=== PATIENT | female | born 1930 | race Caucasian/White ===

== ENCOUNTER 2018-08-25 10:02 | Inpatient (IN) | payer MEDICARE, OTHER ==
[~2018-08-25] VITALS: Ht 167.6 cm; Wt 54.9 kg
[~2018-08-25 10:02] MED LIST: ALBU2.5V4 NEB; ASPI-983 PO; CALC-308 PO; CHOL5000 PO; HYDR-3816 PO; LACT10SO PO; PANT40TA2 PO; PARO-49 PO; PEDI18TA2 PO; TRAM50TA2 PO
[2018-08-25 13:20] VITALS: BP 110/44
--- NOTE | 2018-08-25 13:43 | Occupational Therapy Eval ---
OT Evaluation-General/PLF Medical Diagnosis Admission Date August 25, 2018 Medical Diagnosis: R TKA Onset Date: Aug 23, 2018 Therapy Diagnosis Therapy Diagnosis: decr self care, decr funct mobility, decr act cleo, weakness Height/Weight Height (Feet): 5 Height (Inches): 7.00 Weight (Pounds): 125 Weight (Ounces): 6.0 Precautions Precautions/Isolations: Fall Prevention, Standard Precautions Weight Bear Status Weight Bearing Restriction: Weight Bearing/Tolerated Location Restriction: R LE Referral Physician: Ricco Referral Reason: Evaluation/Treatment Medical History Pertinent Medical History: Arthritis, GERD Additional Medical History Waldenstrom's lymphoma. Colon resection. Hiatal hernia. L TKA. R hip ORIF in March 2018. Depression. Osteoporosis. Current History Elective R TKA Reviewed History: Yes Social History Home: Single Level Current Living Status: Alone Entry Into Home: Ramp ADL-Prior Level of Function Functional [place] Measure 0=Not Assessed/NA 4=Minimal Assistance 1=Total Assistance 5=Supervision or Setup 2=Maximal Assistance 6=Modified [place] 3=Moderate Assistance 7=Complete [place] ADL PLOF Comments Pt reported that she has been able to manage all of her basic self care needs, care for her home, do laundry, cook, manage her checkbook, take her meds. She also mowed her yard all summer and cares for her dog Toto, several cats and horses. 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 DME/Equipment: Bath Chair, Grab Bars, Shower, Tall Toilet DME/Equipment Comments Has walk-in tub with hand held shower OT Current Status Subjective Pt seen in room, up in recliner, agreeable to OT. Pain reported at 5/10 in knee and had two pain pills before she left. Appearance Alert, cooperative Mental Status/Objective Patient Orientation: Person, Place, Time, Situation Attachments: Saline Lock Current Glasses/Contacts: Yes Hearing Aids: No Dentures/Partials: Yes Hand Dominance: Right Upper Extremity ROM Grossly WFL bilat Upper Extremity Sensation Pt reported occasional numbness in fingers when she works outside Upper Extremity Strength Grossly 4/5 bilat ADL-Treatment ADL-Current Transfer SBA from recliner, FWW. After ADLs, pt walked SBA to gym. Functional [place] Measure 0=Not Assessed/NA 4=Minimal Assistance 1=Total Assistance 5=Supervision or Setup 2=Maximal Assistance 6=Modified [place] 3=Moderate Assistance 7=Complete IndependenceIRFPAI Quality Coding Scale 6 Independent with activity with or without an assistive device 5 Patient requires set up or clean up by helper. Patient completes activity by themselves 4 Supervision or touching assist (CGA). [place] provide cues , steadying assist 3 The helper provides less than half the effort to complete the activity 2 The helper provides more than half the effort to complete the activity 1 Dependent. The helper does all the effort to complete an activity 7 Patient refused to complete or attempt activity 9 The patient did not perform the activity before the current illness or injury 88 Not attempted due to Medical conditions or safety concerns Eating (FIM): 6 (Pt reported no problem with opening packages, cutting food, getting a drink. She has dentures and always wears her teeth to eat) Eating (QC): 6 Grooming (FIM): 5 (washed hands SBA at sink, FWW. Applied makeup, cleaned her dentures, combed hair today) Oral Hygiene (QC): 4 (At sink, SBA, FWW) Bathing (FIM): 5 (Pt reported she took a sponge bath at sink, SBA, FWW. washed and dried all parts.) Shower/Bathe Self (QC): 4 (SBA) Upper Body Dressing (FIM): 5 (Pt reported dressing herself today, setup) Upper Body Dressing (QC): 5 (setup) Lower Body Dressing (FIM): 5 (Pt reported dressing herself today, Able to put on socks and shoes without help. SBA standing, FWW) Lower Body Dressing (QC): 4 (SBA) On/Off Footwear (QC): 5 (setup) Toileting (FIM): 5 (SBA to manage clothingm hygiene. Tall toilet, grab bar, FWW ) Toileting Hygiene (QC): 4 (SBA) Toilet/Commode Transfer (FIM): 5 (SBA getting on and off tall toilet, grab bar , FWW) Toilet Transfer (QC): 4 (SBA) Other Treatments Pt completed 12 minutes bilat UE exercise on arm bike set at 15-20W resistance. Also completed graded clothespins with 1# weight on each arm Exercise to strengthen arms for ADLs and to help increase activity tolerance for self care and home tasks. Care transferred to PT. Education OT Patient Education: Modified ADL techniques, Purpose of tx/functional activities, Rehab process, Transfer techniques Teaching Recipient: Patient Teaching Methods: Discussion Response to Teaching: Verbalize Understanding, Return Demonstration OT Short Term Goals Short Term Goals Time Frame: Sep 01, 2018 Grooming(FIM): 6 Toileting(FIM): 6 Toilet/Commode Transfer(FIM): 6 Additional Short Term Goals: 1-Demonstrate ADL Tasks, 2-Verbalize Understanding , 3-ImproveStrength/Bianka 1=Demonstrate adherence to instructed precautions during ADL tasks. 2=Patient will verbalize/demonstrate understanding of assistive devices/ modifications for ADL. 3=Patient will improve strength/tolerance for activity to enable patient to perform ADL's. OT Fci Goals Apple Peeler Operator Goals Time Frame: Sep 08, 2018 Eating (FIM): 6 Eating (QC): 6 Groomin Oral Hygiene (QC): 6 Bathing(FIM): 6 Shower/Bathe Self (QC): 6 Upper Body Dressing(FIM): 6 Upper Body Dressing (QC): 6 Lower Body Dressing(FIM): 6 Lower Body Dressing (QC): 6 On/Off Footwear (QC): 6 Toileting(FIM): 6 Toileting Hygiene (QC): 6 Toilet/Commode Transfer(FIM): 6 Toilet/Commode Transfer (QC): 6 Shower Transfer(FIM): 6 Additional Goals: 1-Demonstrate ADL Tasks, 2-Verbalize Understanding, 3- ImproveStrength/Bianka 1=Demonstrate adherence to instructed precautions during ADL tasks. 2=Patient will verbalize/demonstrate understanding of assistive devices/ modifications for ADL. 3=Patient will improve strength/tolerance for activity to enable patient to perform ADL's. OT Education/Plan Problem List/Assessment Assessment: Decreased Activ Tolerance, Decreased UE Strength, Dependent Transfers, Impaired I ADL's, Impaired Self-Care Skills Pt would benefit from skilled OT to increase her independence in basic self care to allow her to safely return to her home to live independently with family support Discharge Recommendations Plan/Recommendations: Continue POC Therapy D/C Recommendations: Home w/ Family Support, Occupational Therapy Home Care Treatment Plan/Plan of Care Treatment,Training & Education: Yes Patient would benefit from OT for education, treatment and training to promote independence in ADL's, mobility, safety and/or upper extremity function for ADL' s. Plan of Care: ADL Retraining, Functional Mobility, Group Exercise/Act as Ind ( education, exercise, functional mobility, functional activities, socialization) , UE Funct Exercise/Act, UE Neuromus Re-Ed/Coord, OTHER (energy conservation education and practice) Treatment Duration: Sep 08, 2018 Frequency: At least 5 of 7 days/Wk (IRF) Estimated Hrs Per Day: 1.5 hours per day Agreement: Yes Rehab Potential: Good Time/GCodes Start Time: 14:05 Stop Time: 15:00 Total Time Billed (hr/min): 55 Billed Treatment Time visit, 10 minutes evaluation moderate intensity, 15 minutes ADL, 30 minutes exercise SANDY JAMES OT Aug 25, 2018 13:43
--- NOTE | 2018-08-25 13:58 | Physical Therapy Evaluation ---
PT Evaluation-General Medical Diagnosis Admission Date Aug 25, 2018 at 13:10 Medical Diagnosis: R TKA Onset Date: Aug 23, 2018 Therapy Diagnosis Therapy Diagnosis: impaired mobility, strength, endurance, ROM Height/Weight Height (Feet): 5 Height (Inches): 7.00 Weight (Pounds): 125 Weight (Ounces): 6.0 Precautions Precautions/Isolations: Fall Prevention, Standard Precautions Weight Bear Status Right Lower Extremity: Right Weight Bearing/Tolerated Referral Physician: Ricco Reason for Referral: Evaluation/Treatment Medical History Pertinent Medical History: Arthritis, GERD Additional Medical History Waldenstrom's lymphoma, hyperlipidemia, depression, osteoporosis, surg ( previous ORIF right hip) Reviewed History: Yes Social History Home: Single Level Current Living Status: Alone Entry Into Home: Ramp Patient has a basement. She states she has 3 steps to enter her bedroom. Prior/Core FIM Prior Level of Function Functional [place] Measure 0=Not Assessed/NA 4=Minimal Assistance 1=Total Assistance 5=Supervision or Setup 2=Maximal Assistance 6=Modified [place] 3=Moderate Assistance 7=Complete IndependenceIRFPAI Quality Coding Scale 6 Independent with activity with or without an assistive device 5 Patient requires set up or clean up by helper. Patient completes activity by themselves 4 Supervision or touching assist (CGA). [place] provide cues , steadying assist 3 The helper provides less than half the effort to complete the activity 2 The helper provides more than half the effort to complete the activity 1 Dependent. The helper does all the effort to complete an activity 7 Patient refused to complete or attempt activity 9 The patient did not perform the activity before the current illness or injury 88 Not attempted due to Medical conditions or safety concerns Bed Mobility: 7 Transfers (B,C,W/C) (FIM): 7 Gait: 7 PT Evaluation-Current Subjective Patient in wheelchair pre tx, agrees to PT, has 2-3/10 pain in right knee. Pt/Family Goals to be independent at home. Objective Patient Orientation: Person, Place, Situation ROM/Strength ROM Lower Extremities right knee extension +3 degrees, flexion 94 degrees Strenght Lower Extremities NT Neuromuscular (Tone, Coordination, Reflexes) NT Sensory Vision: Functional Hearing: Functional Sensation Right Lower Extremit: Intact Sensation Left Lower Extremity: Intact Sensation Lower Extremities Patient has intact light touch sensation around her right knee on all sides. Transfers Functional [place] Measure 0=Not Assessed/NA 4=Minimal Assistance 1=Total Assistance 5=Supervision or Setup 2=Maximal Assistance 6=Modified [place] 3=Moderate Assistance 7=Complete IndependenceIRFPAI Quality Coding Scale 6 Independent with activity with or without an assistive device 5 Patient requires set up or clean up by helper. Patient completes activity by themselves 4 Supervision or touching assist (CGA). [place] provide cues , steadying assist 3 The helper provides less than half the effort to complete the activity 2 The helper provides more than half the effort to complete the activity 1 Dependent. The helper does all the effort to complete an activity 7 Patient refused to complete or attempt activity 9 The patient did not perform the activity before the current illness or injury 88 Not attempted due to Medical conditions or safety concerns Transfers (B, C, W/C) (FIM): 4 Scootin Rollin Roll Left to Right (QC): 4 Supine to/from Sit: 5 Sit to/from Stand: 4 Sit to Lying (QC): 4 Lying to Sitting/Side of Bed(Q: 4 Sit to Stand (QC): 4 Chair/Num-lm-Yicsn Xfer(QC): 4 Car Transfer (QC): 4 Patient performs bed mobility with SBA, sit to stand and transfers with CGA, car transfer CGA. Appropriate use of hands. Gait Does the Patient Walk?: Yes Mode of Locomotion: Walk Anticipated Mode of Locomotion: Walk Gait (FIM): 4 Walk 10 feet (QC): 4 Walk 50 ft with 2 Turns(QC): 4 Walk 150 ft (QC): 4 Walking 10ft/uneven surface-QC: 4 Distance: 150'x2 Gait Level of Assist: 4 Gait Persons Needed: 1 Gait Assistive Device: FWW Comments/Gait Description Patient can ambulate 150' with a rolling walker with CGA (including 50' with at least 2 turns of 90 degrees and 10' over an uneven surface). Patient mostly ambulates with SBA but needs CGA when turning. Wheelchair Training Does the Pt Use a Wheelchair?: No Stairs Stairs (FIM): 1 #of Steps: 1 Level of Assist: 4 1 Step (curb) (QC): 4 Assistive Device: Walker Patient can go up and down 1 step using a rolling walker with CGA. Cues for foot placement. Balance Sitting Static: Normal Sitting Dynamic: Normal Standing Static: Good Standing Dynamic: Good Treatment Supine TKA exercises x15 on right leg (AP, SAQ, HS, QS, SLR), exercises in parallel bars x15 (heel raises, hamstring curls, mini-squats) Assessment/Needs Patient has impaired mobility, strength, endurance, ROM post right TKA. Rehab Potential: Fair PT Short Term Goals Short Term Goals Time Frame: Sep 01, 2018 Transfers (B,C,W/C) (FIM): 5 Gait (FIM): 5 Gait Distance Comment: 200' Gait Level of Assist: 5 Gait Assistive Device: FWW PT Fpc Goals Fpc Goals PT Fpc Goals Time Frame: Sep 08, 2018 Transfers (B,C,W/C) (FIM): 6 Sit to Lying (QC): 6 Lying-Sitting on Side/Bed(QC): 6 Sit to Stand (QC): 6 Rollin Roll Left to Right (QC): 6 Chair/Luw-hz-Vncmd Xfer(QC): 6 Car Transfer (QC): 6 Gait (FIM): 6 Distance: 250' Walk 10 feet (QC): 6 Walk 10ft-Uneven Surface(QC): 6 Walk 50ft with 2 Turns (QC): 6 Walk 150 ft (QC): 6 Gait Level of Assist: 6 Gait Assistive Device: FWW Stairs (FIM): 2 # of Steps: 4 1 Step (curb) (QC): 4 4 Steps (QC): 4 Stairs Level Of Assist: 5 PT Plan Problem List Problem List: Activity Tolerance, Functional Strength, Safety, Balance, Gait, Transfer, Bed Mobility, ROM Treatment/Plan Treatment Plan: Continue Plan of Care Treatment Plan: Bed Mobility, Education, Functional Activity Bianka, Functional Strength, Group Therapy, Gait, Safety, Therapeutic Exercise, Transfers Treatment Duration: Sep 08, 2018 Frequency: At least 5 of 7 days/Wk (IRF) Estimated Hrs Per Day: 1.5 hours per day Patient and/or Family Agrees t: Yes Safety Risks/Education Patient Education: Gait Training, Transfer Techniques, Steps, Correct Positioning, Safety Issues Teaching Recipient: Patient Teaching Methods: Demonstration, Discussion Response to Teaching: Reinforcement Needed Discharge Recommendations Plan Patient will perform bed mobility and transfer training, balance and endurance training, functional strengthening, stair training, gait training, and education , to improve functional mobility and independence at home. Therapy D/C Recommendations: Home w/ Family Support Time/GCodes Time In: 1315 Time Out: 1345 Total Billed Treatment Time: 30 Total Billed Treatment 1 visit DONNELL 30' BIPIN HUGHES PT Aug 25, 2018 13:58
--- NOTE | 2018-08-25 14:25 | PM&R Post Admission Assessment ---
Post Admission Physician Asses Date seen by provider: Aug 25, 2018 Time seen by provider: 14:00 The preadmission screen agrees with the post admission assessment that the patient is a good candidate for inpatient rehabilitation. The patient will have a comprehensive program of inpatient rehabilitation with a goal of maximizing level of functional independence prior to discharge home with family. The patient will have PT/OT ninety minutes per day, each discipline, five days a week for 10 days for gait, strengthening, conditioning, balance, ADLs, any patient/family/caregiver training as necessary. Speech therapy to do cognitive assessment and treat as indicated. Rehabilitation nursing to assist with bowel, bladder, skin, wound care, medication administration, pain management. Blast Furnace Operator to assist with discharge planning, community reentry. SCD's for DVT prophylaxis. She appears to be well motivated to participate in three hours of therapy a day. She should be able to tolerate three hours of therapy a day from a medical and surgical standpoint. She should benefit from the three hours of therapy a day. She has a reasonable discharge plan, reasonable discharge rehabilitation goals and a supportive family. She has various comorbidities that need to be closely monitored with medications and treatments adjusted on a daily basis as needed. These include: depression Waldenstroms Lymphoma Barriers to discharge for this patient who had been independent prior to this are for her to be modified independent to supervision for ADLs and mobility skills prior to discharge home with family, so as to lessen the burden of the caregivers. Risks for this patient include: 1. Fall 2. Fracture 3. DVT 4. Pulmonary embolism 5. Wound infection 6. Skin breakdown 7. Contractures 8. Poorly controlled pain 9. Urinary retention 10. UTI 11. Respiratory infection 12. Aspiration Estimated Length of Stay: 10 days Prognosis: Rehab prognosis appears good for goal of discharge home with family modified independent to supervision for ADLs and mobility skills. [facility] code 08.61 Etiologic DX Primary OA RT knee Date Identified: Aug 25, 2018 Time Identified: 14:00 Action Plan to Resolve CSMI: TRANSFER MEDS REVIEWED General: Alert, Oriented X3, Cooperative, No Acute Distress HEENT: Atraumatic, PERRLA Neck: Supple, No JVD Lungs: Clear to Auscultation Heart: Regular Rate Abdomen: Normal Bowel Sounds, Soft, No Tenderness Extremities: Other (TRACE EDEMA RT KNEE) Neuro: Other (gOOD STRENGTH bueS ANDLLE RT with limited active flex /ext rt knee CPM ordered) LUI HODGE MD Aug 25, 2018 14:24
--- NOTE | 2018-08-25 15:05 | ST Cognitive Linguistic Eval ---
Speech Evaluation-General Medical Diagnosis R TKA Onset Date: Aug 23, 2018 Therapy Diagnosis Therapy Diagnosis: Cognition Precautions Precautions/Isolations: Fall Prevention, Standard Precautions Referral Referring Physician: Dr. Chacko Reason for Referral: Evaluation/Treatment Medical History Pertinent Medical History: Arthritis, GERD Reviewed History: Yes Social History Current Living Status: Alone Speech PLF-Current Status Prior Level of Function Pt was independent Subjective Pt very cooperative and pleasant. Pain Numeric Pain Scale: 0-No Pain Language Eval: Auditory Comprehends Simple Yes/No Ques: Functional Follows 1-Step Commands: Functional Follows Complex Directions: Functional Follows General Conversations: Functional Language Eval: Verbal Language Completes Spontaneous Greeting: Functional Produces Auto, Serial Info: Functional Word Finding: Functional Requests Basic Needs: Functional States Basic Personal Info: Functional Expresses Complex Ideas: Functional Language Evaluation: Reading NT Cognitive Patient Orientation Oriented x 3. Objective Cognitive Domain Attention: WNL Memory: WNL Problem Solving: Functional Objective Results [facility] Cognitive/Communication Assessment was administered to assess cognitive -linguistic functioning. Results are: Memory - 3 word recall was 3/3 for immediate, delayed and remote delayed. Sequencing/organization - pt was 4/4 correct. Problem Solving - Simple was 3/4 correct; Abstract/complex was 2/2 correct and Comparisons was 4/5 correct. Speech/language - WNL Oral Motor/Speech Production WNL Impression Functional cognitive-linguistic skills. Communication/Social Cognition Comprehension: 7 Expression: 7 Social Interaction: 7 Problem Solvin Memory: 7 Speech Patient Assess Expression of Ideas/Wants: Expression (4) Understanding Verbal Content: Understands (4) Brief Interview-Mental Status: Yes Repetition of Three Words: Three (3) Temporal Orientation: Year: Correct (3) Temporal Orientation: Month: Accurate within 5 days(2) Temporal Orientation: Day: Correct (1) Recall : Wear to say "Sock": Yes, no cue required (2) Recall : Color: Yes, no cue required (2) Recall : Bed: Yes, no cue required (2) Speech Short Term Goals Short Term Goals Short Term Goals no goals established as pt does not require skilled ST. Speech Supplemental Manager Goals Longterm Goals no goals established as skilled ST not indicated. Speech-Plan Patient/Family Goals Patient/Family Goals: to return home Treatment Plan Speech Therapy Treatment Plan: Discontinue ST Pt does not require skilled ST Frequency: Modified Program (IRF) (0) Estimated Hrs Per Day: Other (0) Rehab Potential: Good Pt/Family Agrees to Plan: Yes Safety Risks/Education Teaching Recipient: Patient Teaching Methods: Discussion Response to Teaching: Verbalize Understanding Time Speech Therapy Time In: 13:50 Speech Therapy Time Out: 14:05 Total Billed Time: 15 Billed Treatment Time 1, SPSNDBREANNE Helm Aug 25, 2018 15:05
--- NOTE | 2018-08-25 15:07 | HISTORY AND PHYSICAL ---
DATE OF SERVICE: 08/25/2018 CHIEF COMPLAINT: Difficulty walking. HISTORY OF PRESENT ILLNESS: The patient is an 88-year-old female who lives alone with family nearby who had been independent, but having increasing pain in the right knee. She was admitted to [facility] on 08/23/2018 and had right total knee replacement by Dr. Mccualey. She is placed on CPM for the right knee to enhance flexibility and active range of motion of that knee. She is referred to inpatient rehabilitation unit for ongoing care and therapies. Currently, she is min assist for transfers and gait with a walker. She is independent for eating, set up for grooming at the wheelchair level, min assist for upper body dressing, max assist for lower body dressing. PAST MEDICAL HISTORY: GERD, arthritis, hiatal hernia, depression, Waldenstrom's lymphoma, hyperlipidemia, osteoporosis. PAST SURGICAL HISTORY: ORIF of the right distal femur fracture with plate and screw, left total knee replacement. ALLERGIES: No known medication allergies. FAMILY HISTORY: Noncontributory. SOCIAL HISTORY: Lives in [place], [place]. She is . REVIEW OF SYSTEMS: A 10-point review of systems significant for knee pain. MEDICATIONS: ASA 81 mg p.o. daily, multivitamin with minerals one tablet p.o. daily, Paxil 20 mg p.o. daily, vitamin D 2000 units p.o. daily, calcium and vitamin D one tablet p.o. daily, Mobic 7.5 mg p.o. daily, [place] 5/325 one tablet p.o. q.6 hours as needed for pain, tramadol 50 mg p.o. q.6 hours as needed, Protonix 40 mg p.o. daily. PHYSICAL EXAMINATION: GENERAL: Significant for a pleasant female appearing her stated age, alert and oriented, no acute distress, sitting in chair. VITAL SIGNS: She is afebrile, pulse 62, respirations 20, blood pressure 110/66, O2 sat 98% on room air. HEENT: Vision, speech, hearing grossly intact. No oral lesions noted. NECK: Supple without mass. HEART: Regular rhythm. CHEST: Clear. ABDOMEN: Soft, nontender, bowel sounds present. EXTREMITIES: Trace edema right ankle, no calf tenderness. MUSCULOSKELETAL: The patient has functional active range of motion both upper limbs and left lower limb, right lower limb limited at the knee. NEUROLOGIC: Cognition is grossly intact. Sensation is grossly intact to touch. The patient's right knee extension is +3 degrees, flexion 94 degrees. Strength: Has functional strength both upper limbs and left lower limb, right lower limb limited to knee due to recent surgery. IMPRESSION: 1. Ambulatory dysfunction secondary to OA right knee, status post right total knee replacement by Dr. Mccauley. 2. Osteoarthritis with prior left total knee replacement. 3. Waldenstrom's lymphoma. 4. Depression, on medication. 5. Hiatal hernia. 6. Gastroesophageal reflux disease, on medication. PLAN: The patient will have a comprehensive program of inpatient rehabilitation with goal of maximizing level of functional independence prior to discharge home with home health and family. The patient does live alone. The patient will have PT, OT 90 minutes per day each discipline, 5 days a week for 10 days with above goals in mind. Please see post-admission physician evaluation, which is a separate document for details of plan of care. Speech therapy to do cognitive assessment and treat as indicated. Rehabilitation nursing to assist with bowel, bladder, skin, wound care, medication administration, pain management, CPM administration. Electric Motor Rebuilder to assist with discharge planning, community reentry. Follow up with Dr. Mccauley and Hospitalist services as per their schedule p.r.n. ESTIMATED LENGTH OF STAY: 10 to 14 days. PROGNOSIS: Rehab prognosis appears good for goal of discharging home with family and home health care, modified independent to supervision for ADLs and mobility skills. DIET: Regular. CODE STATUS: Full code. Job ID: [id number] DocumentID: [id number] Dictated Date: 08/25/2018 14:33:25 Asset Protection Professional Date: 08/25/2018 15:06:31 Dictated By: LUI HODGE MD [facility]
--- NOTE | 2018-08-25 16:04 | Physical Therapy Daily Note ---
PT Daily Note-Current Subjective Patient in therapy gym pre tx, agrees to PT, has no complaints of pain at rest. Appearance Patient in therapy gym post tx, has OT right after PT. Mental Status Patient Orientation: Normal For Age Transfers Functional [place] Measure 0=Not Assessed/NA 4=Minimal Assistance 1=Total Assistance 5=Supervision or Setup 2=Maximal Assistance 6=Modified [place] 3=Moderate Assistance 7=Complete IndependenceIRFPAI Quality Coding Scale 6 Independent with activity with or without an assistive device 5 Patient requires set up or clean up by helper. Patient completes activity by themselves 4 Supervision or touching assist (CGA). [place] provide cues , steadying assist 3 The helper provides less than half the effort to complete the activity 2 The helper provides more than half the effort to complete the activity 1 Dependent. The helper does all the effort to complete an activity 7 Patient refused to complete or attempt activity 9 The patient did not perform the activity before the current illness or injury 88 Not attempted due to Medical conditions or safety concerns Transfers (B, C, W/C) (FIM): 5 Sit to/from Stand: 5 Bed to/from Chair: 5 Occasional cues for safety and hand placement. Weight Bearing Right Lower Extremity: Right Weight Bearing/Tolerated Gait Training Gait (FIM): 5 Distance: 200'x5 Gait Level of Assist: 5 Gait Persons Needed: 1 Gait Assistive Device: FWW Slow but steady ambulation, good step-through, good heel strike. Stair Training Stair Training: Handrails/: 2 handrails Stairs (FIM): 5 #of Steps: 12 Stairs: Pattern: Step to Level of Assist: 5 Exercises Standing: Hamstring curls, Heel/toe raises, 3 way Ex=Flex, Abd, Ext, Marching, Mini squats Standing Reps: 15 LAQ alternating for 5 min NuStep Minutes: 15 NuStep Workload: 5 Treatments transfers, ambulation, functional strengthening Assessment Current Status: Fair Progress improved stairs and ambulation PT Short Term Goals Short Term Goals Time Frame: Sep 01, 2018 Transfers (B,C,W/C) (FIM): 5 Gait (FIM): 5 Gait Distance Comment: 200' Gait Level of Assist: 5 Gait Assistive Device: FWW PT Long-Term Goals Shake Backboard [place] Goals PT Shake Backboard [place] Goals Time Frame: Sep 08, 2018 Transfers (B,C,W/C) (FIM): 6 Sit to Lying (QC): 6 Lying-Sitting on Side/Bed(QC): 6 Sit to Stand (QC): 6 Rollin Roll Left to Right (QC): 6 Chair/Krv-km-Qmdqm Xfer(QC): 6 Car Transfer (QC): 6 Gait (FIM): 6 Distance: 250' Walk 10 feet (QC): 6 Walk 10ft-Uneven Surface(QC): 6 Walk 50ft with 2 Turns (QC): 6 Walk 150 ft (QC): 6 Gait Level of Assist: 6 Gait Assistive Device: FWW Stairs (FIM): 2 # of Steps: 4 1 Step (curb) (QC): 4 4 Steps (QC): 4 Stairs Level Of Assist: 5 PT Plan Problem List Problem List: Activity Tolerance, Functional Strength, Safety, Balance, Gait, Transfer, Bed Mobility, ROM Treatment/Plan Treatment Plan: Continue Plan of Care Treatment Plan: Bed Mobility, Education, Functional Activity Bianka, Functional Strength, Group Therapy, Gait, Safety, Therapeutic Exercise, Transfers Treatment Duration: Sep 08, 2018 Frequency: At least 5 of 7 days/Wk (IRF) Estimated Hrs Per Day: 1.5 hours per day Patient and/or Family Agrees t: Yes Safety Risks/Education Patient Education: Gait Training, Transfer Techniques, Steps, Correct Positioning, Safety Issues Teaching Recipient: Patient Teaching Methods: Demonstration, Discussion Response to Teaching: Reinforcement Needed Time/GCodes Time In: 1500 Time Out: 1600 Total Billed Treatment Time: 60 Total Billed Treatment 1 visit GT 30' EX 30' BIPIN HUGHES PT Aug 25, 2018 16:04
--- NOTE | 2018-08-25 16:38 | Occupational Ther Daily Note ---
OT Current Status-Daily Note Subjective Pt seen in gym, agreeable to OT and ready for ADLs in her room. Fatigued but no additional pain mentioned. Appearance Alert, cooperative Mental Status/Objective Functional [place] Measure 0=Not Assessed/NA 4=Minimal Assistance 1=Total Assistance 5=Supervision or Setup 2=Maximal Assistance 6=Modified [place] 3=Moderate Assistance 7=Complete [place] ADL-Treatment Pt got up from chair with arms with SBA, FWW and walked SBA, FWW to her room. Toileted with SBA, washed hands at sink SBA, then undressed and put leisure wear on, recalling modified techniques. Pt transferred to bed SBA, FWW and got into bed without help for legs. Pt educ to call for help for transfers, toileting, etc, with her agreement. Pt left up in bed, warm blanket, 3 rails up , all needs met. Functional [place] Measure 0=Not Assessed/NA 4=Minimal Assistance 1=Total Assistance 5=Supervision or Setup 2=Maximal Assistance 6=Modified [place] 3=Moderate Assistance 7=Complete IndependenceIRFPAI Quality Coding Scale 6 Independent with activity with or without an assistive device 5 Patient requires set up or clean up by helper. Patient completes activity by themselves 4 Supervision or touching assist (CGA). [place] provide cues , steadying assist 3 The helper provides less than half the effort to complete the activity 2 The helper provides more than half the effort to complete the activity 1 Dependent. The helper does all the effort to complete an activity 7 Patient refused to complete or attempt activity 9 The patient did not perform the activity before the current illness or injury 88 Not attempted due to Medical conditions or safety concerns Grooming (FIM): 5 (SBA, FWW at sink) Upper Body (FIM): 5 (setup) Lower Body Dressing (FIM): 5 (SBA, FWW, setup) Lower Body Dressing (QC): 4 On/Off Footwear (QC): 5 (Socks off, shoes off/on) Toileting (FIM): 5 (SBA, FWW, tall toilet, grab bar) Toilet/Commode Transfer (FIM): 5 (SBA, FWW, grab bar, tall toilet) Education OT Patient Education: Modified ADL techniques, Progress toward Goal/Update tx plan, Purpose of tx/functional activities, Safety issues, Transfer techniques Teaching Recipient: Patient Teaching Methods: Discussion Response to Teaching: Verbalize Understanding, Return Demonstration OT Short Term Goals Short Term Goals Time Frame: Sep 01, 2018 Grooming(FIM): 6 Toileting(FIM): 6 Transfers (B,C,W/C) (FIM): 5 Toilet/Commode Transfer(FIM): 6 Additional Short Term Goals: 1-Demonstrate ADL Tasks, 2-Verbalize Understanding , 3-ImproveStrength/Bianka 1=Demonstrate adherence to instructed precautions during ADL tasks. 2=Patient will verbalize/demonstrate understanding of assistive devices/ modifications for ADL. 3=Patient will improve strength/tolerance for activity to enable patient to perform ADL's. OT Detention Goals Detention Goals Time Frame: Sep 08, 2018 Eating (FIM): 6 Eating (QC): 6 Groomin Oral Hygiene (QC): 6 Bathing(FIM): 6 Shower/Bathe Self (QC): 6 Upper Body Dressing(FIM): 6 Upper Body Dressing (QC): 6 Lower Body Dressing(FIM): 6 Lower Body Dressing (QC): 6 On/Off Footwear (QC): 6 Toileting(FIM): 6 Toileting Hygiene (QC): 6 Toilet/Commode Transfer(FIM): 6 Toilet/Commode Transfer (QC): 6 Shower Transfer(FIM): 6 Additional Goals: 1-Demonstrate ADL Tasks, 2-Verbalize Understanding, 3- ImproveStrength/Bianka 1=Demonstrate adherence to instructed precautions during ADL tasks. 2=Patient will verbalize/demonstrate understanding of assistive devices/ modifications for ADL. 3=Patient will improve strength/tolerance for activity to enable patient to perform ADL's. OT Education/Plan Problem List/Assessment Pt would benefit from skilled OT to increase her independence in basic self care to allow her to safely return to her home to live independently with family support Discharge Recommendations Plan/Recommendations: Continue POC Treatment Plan/Plan of Care Patient would benefit from OT for education, treatment and training to promote independence in ADL's, mobility, safety and/or upper extremity function for ADL' s. Plan of Care: ADL Retraining, Functional Mobility, Group Exercise/Act as Ind ( education, exercise, functional mobility, functional activities, socialization) , UE Funct Exercise/Act, UE Neuromus Re-Ed/Coord, OTHER (energy conservation education and practice) Treatment Duration: Sep 08, 2018 Frequency: At least 5 of 7 days/Wk (IRF) Estimated Hrs Per Day: 1.5 hours per day Agreement: Yes Rehab Potential: Good Time/GCodes Start Time: 16:05 Stop Time: 16:30 Total Time Billed (hr/min): 25 Billed Treatment Time visit, 25 minutes SANDY BUTCHER OT Aug 25, 2018 16:38
[2018-08-25 17:15] VITALS: BP 149/71
[2018-08-25] MEDS ORDERED: FLU QUADRIvalent (5+ YOA) 2018-2019 (AFLURIA) 0.5 ML IM ONE (19:00)
[2018-08-25] MEDS: VITAMIN D3 1,000 UNITS (CHOLECALCIFEROL) TABLET PO SCH (19:39)
[2018-08-25] MEDS: HYDROcodone/APAP 5 MG/325 MG (LORTAB) TAB PO PRN (22:32)
[2018-08-26 06:00] VITALS: BP 132/69
[2018-08-26] MEDS: PANTOPRAZOLE 40 MG (PROTONIX) TAB PO SCH (06:28)
[2018-08-26] MEDS: VITAMIN D3 1,000 UNITS (CHOLECALCIFEROL) TABLET PO SCH (06:29)
[2018-08-26] MEDS: MULTIVIT W/MINERALS TAB (THERAGRAN M) PO SCH (06:29)
[2018-08-26] MEDS: CALCIUM CARB + VIT D 600 MG (CALCARB + D) TAB PO SCH (06:29)
[2018-08-26] MEDS: ASPIRIN E.C. 81 MG (ECOTRIN) TAB PO SCH (08:00)
[2018-08-26] MEDS: MELOXICAM 7.5 MG (MOBIC) TABLET PO SCH (08:00)
[2018-08-26] MEDS: PARoxetine 20 MG (PAXIL) TAB PO SCH (08:00)
[2018-08-26] MEDS: HYDROcodone/APAP 5 MG/325 MG (LORTAB) TAB PO PRN ×2 (08:04→21:09)
--- NOTE | 2018-08-26 09:47 | Physical Therapy Daily Note ---
PT Daily Note-Current Subjective Pt. states she feels well and hopes she can be up ad donte soon and think about DC on or Tue. Denies pain. Pain Numeric Pain Scale: 0-No Pain Mental Status Patient Orientation: Normal For Age Transfers Functional [place] Measure 0=Not Assessed/NA 4=Minimal Assistance 1=Total Assistance 5=Supervision or Setup 2=Maximal Assistance 6=Modified [place] 3=Moderate Assistance 7=Complete IndependenceIRFPAI Quality Coding Scale 6 Independent with activity with or without an assistive device 5 Patient requires set up or clean up by helper. Patient completes activity by themselves 4 Supervision or touching assist (CGA). [place] provide cues , steadying assist 3 The helper provides less than half the effort to complete the activity 2 The helper provides more than half the effort to complete the activity 1 Dependent. The helper does all the effort to complete an activity 7 Patient refused to complete or attempt activity 9 The patient did not perform the activity before the current illness or injury 88 Not attempted due to Medical conditions or safety concerns Transfers (B, C, W/C) (FIM): 6 Scootin Rollin Supine to/from Sit: 6 Sit to/from Stand: 6 Weight Bearing Right Lower Extremity: Right Weight Bearing/Tolerated Gait Training Does the Patient Walk?: Yes Gait (FIM): 5 Distance (FIM): 3=150 ft (175x2) Gait Level of Assist: 5 Gait Persons Needed: 1 Gait Assistive Device: FWW Exercises Supine Ex: Ankle pumps, Quad Set, Rolling, Glut sets, Heel Slides, Short Arc Quads, Scooting, Straight leg raise Supine Reps: 20 NuStep Minutes: 10 NuStep Workload: 3 Assessment Current Status: Good Progress PT Short Term Goals Short Term Goals Time Frame: Sep 01, 2018 Transfers (B,C,W/C) (FIM): 5 Gait (FIM): 5 Gait Distance Comment: 200' Gait Level of Assist: 5 Gait Assistive Device: FWW PT [facility] Goals [facility] Goals PT [facility] Goals Time Frame: Sep 08, 2018 Transfers (B,C,W/C) (FIM): 6 Sit to Lying (QC): 6 Lying-Sitting on Side/Bed(QC): 6 Sit to Stand (QC): 6 Rollin Roll Left to Right (QC): 6 Chair/Vxb-dr-Imghj Xfer(QC): 6 Car Transfer (QC): 6 Gait (FIM): 6 Distance: 250' Walk 10 feet (QC): 6 Walk 10ft-Uneven Surface(QC): 6 Walk 50ft with 2 Turns (QC): 6 Walk 150 ft (QC): 6 Gait Level of Assist: 6 Gait Assistive Device: FWW Stairs (FIM): 2 # of Steps: 4 1 Step (curb) (QC): 4 4 Steps (QC): 4 Stairs Level Of Assist: 5 PT Plan Treatment/Plan Treatment Plan: Continue Plan of Care Treatment Plan: Bed Mobility, Education, Functional Activity Bianka, Functional Strength, Group Therapy, Gait, Safety, Therapeutic Exercise, Transfers Treatment Duration: Sep 08, 2018 Frequency: At least 5 of 7 days/Wk (IRF) Estimated Hrs Per Day: 1.5 hours per day Patient and/or Family Agrees t: Yes Safety Risks/Education Patient Education: Gait Training, Transfer Techniques, Correct Positioning, Disease Process, Safety Issues Teaching Recipient: Patient Teaching Methods: Demonstration, Discussion Response to Teaching: Verbalize Understanding, Return Demonstration Time/GCodes Time In: 850 Time Out: 920 Total Billed Treatment Time: 30 Total Billed Treatment 1,EX15m,GT15m G Codes Necessary: HELLEN Davenport TIMBER TRIMMER Aug 26, 2018 09:47
[2018-08-26 17:13] VITALS: BP 145/76
[2018-08-27 05:50] VITALS: BP 156/75
[2018-08-27] MEDS: MULTIVIT W/MINERALS TAB (THERAGRAN M) PO SCH (05:51)
[2018-08-27] MEDS: CALCIUM CARB + VIT D 600 MG (CALCARB + D) TAB PO SCH (05:51)
[2018-08-27] MEDS: PANTOPRAZOLE 40 MG (PROTONIX) TAB PO SCH (05:51)
[2018-08-27] MEDS: VITAMIN D3 1,000 UNITS (CHOLECALCIFEROL) TABLET PO SCH (05:51)
[2018-08-27] MEDS: HYDROcodone/APAP 5 MG/325 MG (LORTAB) TAB PO PRN ×2 (05:52→21:14)
[2018-08-27] MEDS: MELOXICAM 7.5 MG (MOBIC) TABLET PO SCH (08:00)
[2018-08-27] MEDS: ASPIRIN E.C. 81 MG (ECOTRIN) TAB PO SCH (08:00)
[2018-08-27] MEDS: PARoxetine 20 MG (PAXIL) TAB PO SCH (08:00)
[2018-08-27 17:40] VITALS: BP 148/72
--- NOTE | 2018-08-27 21:20 | PM & R (SOAP) Progress Note ---
Subjective This was a face to face visit with the patient. Date Seen by Provider: Aug 27, 2018 Time Seen by Provider: 21:00 Subjective/Events-last exam Patient was seen in her room this evening Patient Modified Independent for transfers Objective Physician Exam Last Set of Vital Signs Vital Signs Date Time Temp Pulse Resp B/P (MAP) Pulse Ox O2 Delivery O2 Flow Rate FiO2 08/27/18 17:40 97.3 67 18 148/72 (97) 96 Room Air Capillary Refill : I&O Intake and Output 08/27/18 00:00 Intake Total 1200 ml Balance 1200 ml Intake Oral 1200 ml # Voids 6 # Bowel Movements 1 General: Alert, Oriented X3, Cooperative, No Acute Distress HEENT: Atraumatic, PERRLA Neck: Supple, No JVD Lungs: Clear to Auscultation Heart: Regular Rate Abdomen: Normal Bowel Sounds, Soft, No Tenderness Extremities: Other (TRACE EDEMA RT KNEE) Neuro: Other (gOOD STRENGTH bueS ANDLLE RT with limited active flex /ext rt knee CPM ordered) Assessment/Plan Assessment and Plan 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
[2018-08-28 05:11] VITALS: BP 158/71
[2018-08-28] MEDS: VITAMIN D3 1,000 UNITS (CHOLECALCIFEROL) TABLET PO SCH (06:32)
[2018-08-28] MEDS: MULTIVIT W/MINERALS TAB (THERAGRAN M) PO SCH (06:32)
[2018-08-28] MEDS: CALCIUM CARB + VIT D 600 MG (CALCARB + D) TAB PO SCH (06:32)
[2018-08-28] MEDS: PANTOPRAZOLE 40 MG (PROTONIX) TAB PO SCH (06:32)
[2018-08-28] MEDS: HYDROcodone/APAP 5 MG/325 MG (LORTAB) TAB PO PRN (06:36)
[2018-08-28] MEDS: ASPIRIN E.C. 81 MG (ECOTRIN) TAB PO SCH (07:55)
[2018-08-28] MEDS: PARoxetine 20 MG (PAXIL) TAB PO SCH (07:55)
[2018-08-28] MEDS: MELOXICAM 7.5 MG (MOBIC) TABLET PO SCH (07:56)
--- NOTE | 2018-08-28 09:25 | Occupational Ther Daily Note ---
OT Current Status-Daily Note Subjective Pt alert, sitting up in bed. Pt agrees to therapy. No c/o pain. Mental Status/Objective Patient Orientation: Person, Place, Time, Situation Functional [place] Measure 0=Not Assessed/NA 4=Minimal Assistance 1=Total Assistance 5=Supervision or Setup 2=Maximal Assistance 6=Modified [place] 3=Moderate Assistance 7=Complete [place] ADL-Treatment Functional [place] Measure 0=Not Assessed/NA 4=Minimal Assistance 1=Total Assistance 5=Supervision or Setup 2=Maximal Assistance 6=Modified [place] 3=Moderate Assistance 7=Complete IndependenceIRFPAI Quality Coding Scale 6 Independent with activity with or without an assistive device 5 Patient requires set up or clean up by helper. Patient completes activity by themselves 4 Supervision or touching assist (CGA). [place] provide cues , steadying assist 3 The helper provides less than half the effort to complete the activity 2 The helper provides more than half the effort to complete the activity 1 Dependent. The helper does all the effort to complete an activity 7 Patient refused to complete or attempt activity 9 The patient did not perform the activity before the current illness or injury 88 Not attempted due to Medical conditions or safety concerns Other Treatment Pt declined showering at this time. Pt ambulated to therapy gym using FWW. Arm bike completed 15 min at 20 islas resistance to increased strength and activity tolerance for daily functional tasks. 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 Resistive clothespins with 1# wt attached to wrists, completed 2x's each hand to increase UE strengthening. Pt ambulated back to room using FWW. After therapy, pt sitting on EOB with call light/phone in reach. All needs met in room. OT Short Term Goals Short Term Goals Time Frame: Sep 01, 2018 Grooming(FIM): 6 Toileting(FIM): 6 Transfers (B,C,W/C) (FIM): 5 Toilet/Commode Transfer(FIM): 6 Additional Short Term Goals: 1-Demonstrate ADL Tasks, 2-Verbalize Understanding , 3-ImproveStrength/Bianka 1=Demonstrate adherence to instructed precautions during ADL tasks. 2=Patient will verbalize/demonstrate understanding of assistive devices/ modifications for ADL. 3=Patient will improve strength/tolerance for activity to enable patient to perform ADL's. OT Meteorology Teacher Goals Meteorology Teacher Goals Time Frame: Sep 08, 2018 Eating (FIM): 6 Eating (QC): 6 Groomin Oral Hygiene (QC): 6 Bathing(FIM): 6 Shower/Bathe Self (QC): 6 Upper Body Dressing(FIM): 6 Upper Body Dressing (QC): 6 Lower Body Dressing(FIM): 6 Lower Body Dressing (QC): 6 On/Off Footwear (QC): 6 Toileting(FIM): 6 Toileting Hygiene (QC): 6 Toilet/Commode Transfer(FIM): 6 Toilet/Commode Transfer (QC): 6 Shower Transfer(FIM): 6 Additional Goals: 1-Demonstrate ADL Tasks, 2-Verbalize Understanding, 3- ImproveStrength/Bianka 1=Demonstrate adherence to instructed precautions during ADL tasks. 2=Patient will verbalize/demonstrate understanding of assistive devices/ modifications for ADL. 3=Patient will improve strength/tolerance for activity to enable patient to perform ADL's. OT Education/Plan Problem List/Assessment Pt would benefit from skilled OT to increase her independence in basic self care to allow her to safely return to her home to live independently with family support Discharge Recommendations Plan/Recommendations: Continue POC Treatment Plan/Plan of Care Patient would benefit from OT for education, treatment and training to promote independence in ADL's, mobility, safety and/or upper extremity function for ADL' s. Plan of Care: ADL Retraining, Functional Mobility, Group Exercise/Act as Ind ( education, exercise, functional mobility, functional activities, socialization) , UE Funct Exercise/Act, UE Neuromus Re-Ed/Coord, OTHER (energy conservation education and practice) Treatment Duration: Sep 08, 2018 Frequency: At least 5 of 7 days/Wk (IRF) Estimated Hrs Per Day: 1.5 hours per day Agreement: Yes Rehab Potential: Good Time/GCodes Start Time: 08:50 Stop Time: 09:40 Total Time Billed (hr/min): 50 Billed Treatment Time 1 visit-EX 3 (50 min) GAMALIEL PARDO Aug 28, 2018 09:25
--- NOTE | 2018-08-28 10:51 | Physical Therapy Daily Note ---
PT Daily Note-Current Subjective Pt reports no pain and would like to be up ad donte. Pt looks forward to discharging on Tuesday. Pain Numeric Pain Scale: 0-No Pain Appearance Pt is dressed and does not appear stated age; appears younger. Mental Status Patient Orientation: Normal For Age Transfers Functional [place] Measure 0=Not Assessed/NA 4=Minimal Assistance 1=Total Assistance 5=Supervision or Setup 2=Maximal Assistance 6=Modified [place] 3=Moderate Assistance 7=Complete IndependenceIRFPAI Quality Coding Scale 6 Independent with activity with or without an assistive device 5 Patient requires set up or clean up by helper. Patient completes activity by themselves 4 Supervision or touching assist (CGA). [place] provide cues , steadying assist 3 The helper provides less than half the effort to complete the activity 2 The helper provides more than half the effort to complete the activity 1 Dependent. The helper does all the effort to complete an activity 7 Patient refused to complete or attempt activity 9 The patient did not perform the activity before the current illness or injury 88 Not attempted due to Medical conditions or safety concerns Transfers (B, C, W/C) (FIM): 6 Scootin Rollin Supine to/from Sit: 6 Sit to/from Stand: 6 Bed to/from Chair: 6 all transfers mod I. Car transfer mod I with instruction. Car model adjusted to approximate height of Pt own vehicle. Weight Bearing Right Lower Extremity: Right Weight Bearing/Tolerated Gait Training Does the Patient Walk?: Yes Gait (FIM): 6 Distance (FIM): 3=150 ft (225x2) Gait Level of Assist: 6 Gait Persons Needed: 0 Gait Assistive Device: FWW Equal step length, good alignment, safe habits, slight extension lag noted at heel strike. Pt advanced to up ad donte this date. Wheelchair Training Does the Pt Use a Wheelchair?: No Stair Training Stair Training: Handrails/: 2 handrails Stairs (FIM): 6 #of Steps: 12 Stairs: Pattern: Step to Level of Assist: 6 Pt states she has 4-12 steps at home with bilateral rails. Pt feels comfortable and safe on steps this date. Balance Special Test Comments Pt able to pick object from floor with walker near by. Exercises Supine Ex: Ankle pumps, Quad Set, Rolling, Glut sets, Heel Slides, Short Arc Quads, Scooting, Straight leg raise Supine Reps: 20 NuStep Minutes: 12 NuStep Workload: 5 Treatments As tolerated seat of nustep was advanced forward allowing further flexion, Pt controlled this with the upper extremity bars. Pt motivated and accomplished this well. Assessment Current Status: Excellent Progress Pt making good progress in all phases of treatment. AROM; 5-95 degrees (Pt lacks approximately 5 degrees of extension). PT Short Term Goals Short Term Goals Time Frame: Sep 01, 2018 Transfers (B,C,W/C) (FIM): 5 Gait (FIM): 5 Gait Distance Comment: 200' Gait Level of Assist: 5 Gait Assistive Device: FWW PT [place] Goals Longterm Goals PT [place] Goals Time Frame: Sep 08, 2018 Transfers (B,C,W/C) (FIM): 6 Sit to Lying (QC): 6 Lying-Sitting on Side/Bed(QC): 6 Sit to Stand (QC): 6 Rollin Roll Left to Right (QC): 6 Chair/Qkp-lq-[place]les[place] Xfer(QC): 6 Car Transfer (QC): 6 Gait (FIM): 6 Distance: 250' Walk 10 feet (QC): 6 Walk 10ft-Uneven Surface(QC): 6 Walk 50ft with 2 Turns (QC): 6 Walk 150 ft (QC): 6 Gait Level of Assist: 6 Gait Assistive Device: FWW Stairs (FIM): 2 # of Steps: 4 1 Step (curb) (QC): 4 4 Steps (QC): 4 Stairs Level Of Assist: 5 PT Plan Treatment/Plan Treatment Plan: Continue Plan of Care Treatment Plan: Bed Mobility, Education, Functional Activity Bianka, Functional Strength, Group Therapy, Gait, Safety, Therapeutic Exercise, Transfers Treatment Duration: Sep 08, 2018 Frequency: At least 5 of 7 days/Wk (IRF) Estimated Hrs Per Day: 1.5 hours per day Patient and/or Family Agrees t: Yes Safety Risks/Education Patient Education: Gait Training, Transfer Techniques, Steps, Correct Positioning, Disease Process, Safety Issues Teaching Recipient: Patient Teaching Methods: Demonstration, Discussion Response to Teaching: Verbalize Understanding, Return Demonstration Time/GCodes Time In: 1000 Time Out: 1100 Total Billed Treatment Time: 60 Total Billed Treatment 1; Ex 25m, GT 15m, FA 20m G Codes Necessary: HELLEN Davenport TIRE RETREADER Aug 28, 2018 10:51
--- NOTE | 2018-08-28 11:46 | Occupational Ther Daily Note ---
OT Current Status-Daily Note Subjective Pt alert, lying in bed. Pt up ad donte in room per PT. Pt agrees to therapy. No c/o pain at this time. Mental Status/Objective Patient Orientation: Person, Place, Time, Situation Functional [place] Measure 0=Not Assessed/NA 4=Minimal Assistance 1=Total Assistance 5=Supervision or Setup 2=Maximal Assistance 6=Modified [place] 3=Moderate Assistance 7=Complete [place] ADL-Treatment Functional [place] Measure 0=Not Assessed/NA 4=Minimal Assistance 1=Total Assistance 5=Supervision or Setup 2=Maximal Assistance 6=Modified [place] 3=Moderate Assistance 7=Complete IndependenceIRFPAI Quality Coding Scale 6 Independent with activity with or without an assistive device 5 Patient requires set up or clean up by helper. Patient completes activity by themselves 4 Supervision or touching assist (CGA). [place] provide cues , steadying assist 3 The helper provides less than half the effort to complete the activity 2 The helper provides more than half the effort to complete the activity 1 Dependent. The helper does all the effort to complete an activity 7 Patient refused to complete or attempt activity 9 The patient did not perform the activity before the current illness or injury 88 Not attempted due to Medical conditions or safety concerns Grooming (FIM): 6 (Using FWW, pt stands at sink to complete grooming.) Oral Hygiene (QC): 6 Bathing (FIM): 6 (Using grabbars, hand held shower and shower bench pt is able to complete shower.) Bathing Location: L Arm, R Arm, L Upper Leg, R Upper Leg, L Lower Leg ( including foot), R Lower Leg (including foot), Chest, Abdomen, Buttocks, Perineal Area Shower/Bathe Self (QC): 6 Upper Body (FIM): 6 (Pt uses FWW to transport clothing. Able to complete dressing by self.) Upper Body Dressing (QC): 6 Lower Body Dressing (FIM): 6 (Pt uses FWW to transport clothing. Able to complete dressing by self, FWW in standing for stability while hiking pants over hips.) Lower Body Dressing (QC): 6 On/Off Footwear (QC): 6 Toileting (FIM): 6 (Using grabbars and FWW, pt able to complete by self.) Toileting Hygiene (QC): 6 Transfers (B, C, W/C) (FIM): 6 Toilet/Commode Transfer (FIM): 6 (Using FWW and grabbars, pt able to complete transfer.) Toilet Transfer (QC): 6 Shower Transfer(FIM): 6 (Using grabbars, shower bench and FWW pt able to complete by self.) Pt has all equipment necessary at home and uses walk-in shower. After therapy, pt sitting EOB with call light/phone in reach. All needs met in room. OT Short Term Goals Short Term Goals Time Frame: Sep 01, 2018 Grooming(FIM): 6 Toileting(FIM): 6 Transfers (B,C,W/C) (FIM): 5 Toilet/Commode Transfer(FIM): 6 Additional Short Term Goals: 1-Demonstrate ADL Tasks, 2-Verbalize Understanding , 3-ImproveStrength/Bianka 1=Demonstrate adherence to instructed precautions during ADL tasks. 2=Patient will verbalize/demonstrate understanding of assistive devices/ modifications for ADL. 3=Patient will improve strength/tolerance for activity to enable patient to perform ADL's. OT Engine Mechanic Goals Engine Mechanic Goals Time Frame: Sep 08, 2018 Eating (FIM): 6 (met) Eating (QC): 6 (met) Groomin (met) Oral Hygiene (QC): 6 (met) Bathing(FIM): 6 (met) Shower/Bathe Self (QC): 6 (met) Upper Body Dressing(FIM): 6 (met) Upper Body Dressing (QC): 6 (met) Lower Body Dressing(FIM): 6 (met) Lower Body Dressing (QC): 6 (met) On/Off Footwear (QC): 6 (met) Toileting(FIM): 6 (met) Toileting Hygiene (QC): 6 (met) Toilet/Commode Transfer(FIM): 6 (met) Toilet/Commode Transfer (QC): 6 (met) Shower Transfer(FIM): 6 (met) Additional Goals: 1-Demonstrate ADL Tasks, 2-Verbalize Understanding, 3- ImproveStrength/Bianka 1=Demonstrate adherence to instructed precautions during ADL tasks. 2=Patient will verbalize/demonstrate understanding of assistive devices/ modifications for ADL. 3=Patient will improve strength/tolerance for activity to enable patient to perform ADL's. OT Education/Plan Problem List/Assessment Pt would benefit from skilled OT to increase her independence in basic self care to allow her to safely return to her home to live independently with family support Discharge Recommendations Plan/Recommendations: Continue POC Treatment Plan/Plan of Care Patient would benefit from OT for education, treatment and training to promote independence in ADL's, mobility, safety and/or upper extremity function for ADL' s. Plan of Care: ADL Retraining, Functional Mobility, Group Exercise/Act as Ind ( education, exercise, functional mobility, functional activities, socialization) , UE Funct Exercise/Act, UE Neuromus Re-Ed/Coord, OTHER (energy conservation education and practice) Treatment Duration: Sep 08, 2018 Frequency: At least 5 of 7 days/Wk (IRF) Estimated Hrs Per Day: 1.5 hours per day Agreement: Yes Rehab Potential: Good Time/GCodes Start Time: 11:10 Stop Time: 11:50 Total Time Billed (hr/min): 40 Billed Treatment Time 1 visit-ADL 3 (40 min) GAMALIEL PARDO Aug 28, 2018 11:46
--- NOTE | 2018-08-28 12:17 | PM & R (SOAP) Progress Note ---
Subjective This was a face to face visit with the patient. Time Seen by Provider: 07:45 Subjective/Events-last exam Patient was seen in her room this AM .Patient Modified Independent for transfers Progressing well with therapies Plans on discharge this 08-30.SCDS for DVT prophylaxis as patient so mobile Objective Physician Exam Last Set of Vital Signs Vital Signs Date Time Temp Pulse Resp B/P (MAP) Pulse Ox O2 Delivery O2 Flow Rate FiO2 08/28/18 08:11 Room Air 08/28/18 05:11 99.8 62 16 158/71 (100) 97 Capillary Refill : I&O Intake and Output 08/28/18 00:00 Intake Total 1690 ml Output Total 450 ml Balance 1240 ml Intake Oral 1690 ml Output Urine Total 450 ml # Voids 5 # Bowel Movements 2 General: Alert, Oriented X3, Cooperative, No Acute Distress HEENT: Atraumatic, PERRLA Neck: Supple, No JVD Lungs: Clear to Auscultation Heart: Regular Rate Abdomen: Normal Bowel Sounds, Soft, No Tenderness Extremities: Other (TRACE EDEMA RT KNEE) Neuro: Other (gOOD STRENGTH bueS ANDLLE RT with limited active flex /ext rt knee CPM ordered) Assessment/Plan Assessment and Plan 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
--- NOTE | 2018-08-28 12:21 | Individualized Plan of Care ---
Individualized Plan of Care Rehab Nursing IPOC Order Admission Date Aug 25, 2018 at 13:10 Current Orders Orders Pt Evaluate/Treat Request (08/25/18 10:03) Request Ot Evaluate & Treat (08/25/18 10:03) Request For Cognitive Services (08/25/18 10:03) Admission Arrival Bed Request (08/25/18 13:10) Nursing Communication (Order) (08/25/18 13:44) Dick Huitron ,21 (08/25/18 13:46) Continuous Passive Motion (08/25/18 13:46) General/Regular (08/25/18 Lunch) Admission Order(Inpt,Obs,Sdc) (08/25/18 14:12) Sequential Compression Device , (08/25/18 14:12) Senior Manufacturing Technician-Inpt Rehab Con (08/25/18 14:12) Rehab Nursing Orders-Ipoc (08/25/18 14:12) Intake & Output 06,14,22 (08/25/18 14:12) Precautions (Aru) (08/25/18 14:12) Weekly Weight (Lbs) WEEK (08/25/18 14:12) Code/Resuscitation (08/25/18 14:12) Initiate Admission Nursing Pro .admission (08/25/18 14:12) Therapeutic Multivitamin Tab (Vitamins, (08/26/18 07:00) Aspirin Enteric Coated Tablet (Ecotrin T (08/26/18 09:00) Paroxetine Tablet (Paxil Tablet) (08/26/18 09:00) Calcium Carbonate W/Vitamin D3 (Calcarb (08/26/18 07:00) Meloxicam Tablet (Mobic Tablet) (08/26/18 09:00) Hydrocodone/Apap 5/325 Tablet (Lortab 5 (08/25/18 14:15) Tramadol Tablet (Ultram Tablet) (08/25/18 14:15) Pantoprazole Tablet (Protonix Tablet) (08/26/18 07:00) Ambulate 08,12,20 (08/25/18 14:32) Dvt/Vte Risk - Notifiy Physici 08 (08/25/18 14:32) Cholecalciferol Capsule/Tablet (Vitamin (08/25/18 07:00) Patient Visit (08/25/18 ) Pt Eval Moderate Complexity (08/25/18 ) Patient Visit (08/25/18 ) Speech Sound Lang Comp (08/25/18 ) Influenza Quad (5+Yoa) 2017- (Afluria (08/25/18 19:00) Patient Visit (08/25/18 ) Exercise Therap, Ea 15 Min (08/25/18 ) Gait Training, Ea 15 Min (08/25/18 ) Patient Visit (08/26/18 ) Exercise Therap, Ea 15 Min (08/26/18 ) Gait Training, Ea 15 Min (08/26/18 ) Rehab Nursing Orders: Ongoing Assess. of Cognitive Status, Ongoing Assess. of Function Status, Disease Management & Educaiton, DVT Prophylaxis, Fall Prevention, Fluid/Electrolyte/Nutrition Mgmt, Infection Prevention, Medication Management & Education, Management of Risks & Complications, Management of Skin Intergrity, Nutrition Management, Pain Management, Patient/Family Support PT IPOC Problem List: Activity Tolerance, Functional Strength, Safety, Balance, Gait, Transfer, Bed Mobility, ROM Treatment Plan: Continue Plan of Care Bed Mobility, Education, Functional Activity Bianka, Functional Strength, Group Therapy, Gait, Safety, Therapeutic Exercise, Transfers Treatment Duration: Sep 08, 2018 Frequency: At least 5 of 7 days/Wk (IRF) Estimated Hrs Per Day: 1.5 hours per day OT IPOC Problems: Decreased Activ Tolerance, Decreased UE Strength, Dependent Transfers , Impaired I ADL's, Impaired Self-Care Skills OT Treatment, Training and Edu: Yes OT Problems Pt would benefit from skilled OT to increase her independence in basic self care to allow her to safely return to her home to live independently with family support Plan of Care: ADL Retraining, Functional Mobility, Group Exercise/Act as Ind ( education, exercise, functional mobility, functional activities, socialization) , UE Funct Exercise/Act, UE Neuromus Re-Ed/Coord, OTHER (energy conservation education and practice) Treatment Duration: Sep 08, 2018 Frequency: At least 5 of 7 days/Wk (IRF) Estimated Hrs Per Day: 1.[address] IPOC Speech Therapy Treatment Plan: Discontinue ST Treatment Duration: Aug 28, 2018 Frequency: Modified Program (IRF) (0) Estimated Hrs Per Day: Other (0) Senior Manufacturing Technician/Case Mgmt Senior Manufacturing Technician/Case Managemen: Discharge Planning, Patient/Family Counseling Dietitian/Immigration Officer Dietitian/Immigration Officer to monitor nutritional status and make changes and/or recommendations as needed and work with speech pathology on dietary upgrades as the occur. Physician IPOC Medical Issues being managed closely and that require the 24 hour availability of a physician: Depression Hiatal hernia GERD [facility] code 08.61 Etiologic DX OA rt knee Medical Issues: DVT Prophylaxis, Falls Precautions, Infection Protection, Pain Management, Wound Care, Other (List) (as per above) Brief Synthesis of Preadmission Screen, Post-Admission Evaluation, and Therapy Evaluations:88 yo female who lives alone but had been Independent with family nearby to assist as needed who had RT TKR at OSH and referred here at [facility] for ongoing care and therapies .Progressing quite well Medical Prognosis: Good Anticipated Length of Stay: 11-7-18 Modified Independent for adls and mobility skills Anticipated d/c Destination: Home with family and [facility] LUI HODGE MD Aug 28, 2018 12:21
--- NOTE | 2018-08-28 13:32 | Physical Therapy Daily Note ---
PT Daily Note-Current Subjective Pt. agrees to Rx. No c/o pain Pain Numeric Pain Scale: 0-No Pain Mental Status Patient Orientation: Normal For Age Transfers Functional [place] Measure 0=Not Assessed/NA 4=Minimal Assistance 1=Total Assistance 5=Supervision or Setup 2=Maximal Assistance 6=Modified [place] 3=Moderate Assistance 7=Complete IndependenceIRFPAI Quality Coding Scale 6 Independent with activity with or without an assistive device 5 Patient requires set up or clean up by helper. Patient completes activity by themselves 4 Supervision or touching assist (CGA). [place] provide cues , steadying assist 3 The helper provides less than half the effort to complete the activity 2 The helper provides more than half the effort to complete the activity 1 Dependent. The helper does all the effort to complete an activity 7 Patient refused to complete or attempt activity 9 The patient did not perform the activity before the current illness or injury 88 Not attempted due to Medical conditions or safety concerns All TRFs Mod I , bed and chair without arms trialed this PM Weight Bearing Right Lower Extremity: Right Weight Bearing/Tolerated Gait Training Gait Assistive Device: FWW Pt. on [employer] community outing this PM for on off elevator using buttons indep etc. over transitions of door jambs as well as changing floor surfaces,ie carpet to tile etc. side stepping through small spaces of gift shop and waiting area. Pt. also toured through the cafeteria as well as up down ramp approx 20 ft up and down all with no incident ambulating over 1000ft Assessment Current Status: Excellent Progress up ad donte PT Short Term Goals Short Term Goals Time Frame: Sep 01, 2018 Transfers (B,C,W/C) (FIM): 5 Gait (FIM): 5 Gait Distance Comment: 200' Gait Level of Assist: 5 Gait Assistive Device: FWW PT Mcc Goals Mcc Goals PT Mcc Goals Time Frame: Sep 08, 2018 Transfers (B,C,W/C) (FIM): 6 Sit to Lying (QC): 6 Lying-Sitting on Side/Bed(QC): 6 Sit to Stand (QC): 6 Rollin Roll Left to Right (QC): 6 Chair/Ewi-gk-Dzuku Xfer(QC): 6 Car Transfer (QC): 6 Gait (FIM): 6 Distance: 250' Walk 10 feet (QC): 6 Walk 10ft-Uneven Surface(QC): 6 Walk 50ft with 2 Turns (QC): 6 Walk 150 ft (QC): 6 Gait Level of Assist: 6 Gait Assistive Device: FWW Stairs (FIM): 2 # of Steps: 4 1 Step (curb) (QC): 4 4 Steps (QC): 4 Stairs Level Of Assist: 5 PT Plan Treatment/Plan Treatment Plan: Continue Plan of Care Treatment Plan: Bed Mobility, Education, Functional Activity Bianka, Functional Strength, Group Therapy, Gait, Safety, Therapeutic Exercise, Transfers Treatment Duration: Sep 08, 2018 Frequency: At least 5 of 7 days/Wk (IRF) Estimated Hrs Per Day: 1.5 hours per day Patient and/or Family Agrees t: Yes Safety Risks/Education Patient Education: Gait Training, Steps Time/GCodes Time In: 1300 Time Out: 1330 Total Billed Treatment Time: 30 Total Billed Treatment 1,GT30m G Codes Necessary: HELLEN Davenport GLASS CUTTER Aug 28, 2018 13:32
[2018-08-28] MEDS ORDERED: CALC-712 PO (15:03)
[2018-08-28] MEDS ORDERED: IBUP-30 PO (15:03)
[2018-08-28] MEDS ORDERED: BETA1TAB PO (15:03)
[2018-08-28] MEDS ORDERED: CHOL20002 PO (15:03)
[2018-08-28 16:07] VITALS: BP 129/66
[2018-08-28] MEDS: POLYETHYLENE GLYCOL 17 GM (MIRALAX) PACK PO SCH (20:21)
[2018-08-29 06:00] VITALS: BP 144/74
[2018-08-29] MEDS: HYDROcodone/APAP 5 MG/325 MG (LORTAB) TAB PO PRN (06:06)
[2018-08-29] MEDS: PANTOPRAZOLE 40 MG (PROTONIX) TAB PO SCH (06:07)
[2018-08-29] MEDS: VITAMIN D3 1,000 UNITS (CHOLECALCIFEROL) TABLET PO SCH (06:07)
[2018-08-29] MEDS: MULTIVIT W/MINERALS TAB (THERAGRAN M) PO SCH (06:07)
[2018-08-29] MEDS: CALCIUM CARB + VIT D 600 MG (CALCARB + D) TAB PO SCH (06:07)
--- NOTE | 2018-08-29 07:09 | Occupational Ther Daily Note ---
OT Current Status-Daily Note Subjective Pt alert, sitting on EOB. Pt agrees to therapy. No c/o pain. Mental Status/Objective Patient Orientation: Person, Place, Time, Situation Functional [place] Measure 0=Not Assessed/NA 4=Minimal Assistance 1=Total Assistance 5=Supervision or Setup 2=Maximal Assistance 6=Modified [place] 3=Moderate Assistance 7=Complete [place] ADL-Treatment Functional [place] Measure 0=Not Assessed/NA 4=Minimal Assistance 1=Total Assistance 5=Supervision or Setup 2=Maximal Assistance 6=Modified [place] 3=Moderate Assistance 7=Complete IndependenceIRFPAI Quality Coding Scale 6 Independent with activity with or without an assistive device 5 Patient requires set up or clean up by helper. Patient completes activity by themselves 4 Supervision or touching assist (CGA). [place] provide cues , steadying assist 3 The helper provides less than half the effort to complete the activity 2 The helper provides more than half the effort to complete the activity 1 Dependent. The helper does all the effort to complete an activity 7 Patient refused to complete or attempt activity 9 The patient did not perform the activity before the current illness or injury 88 Not attempted due to Medical conditions or safety concerns Eating (FIM): 6 (Pt able to open packages/containers then use regular utensils. ) Eating (QC): 6 Grooming (FIM): 7 (Using sink counter to stabilize self while standing to complete grooming.) Oral Hygiene (QC): 6 Bathing (FIM): 6 (Using grabbar, shower bench and hand held shower pt able to complete all bathing by self.) Bathing Location: L Arm, R Arm, L Upper Leg, R Upper Leg, L Lower Leg ( including foot), R Lower Leg (including foot), Chest, Abdomen, Buttocks, Perineal Area Shower/Bathe Self (QC): 6 Upper Body (FIM): 6 (Retrieves/transports clothing with FWW then is able to dress by self.) Upper Body Dressing (QC): 6 Lower Body Dressing (FIM): 6 (Retrieves/transports clothing with FWW then is able to dress by self.) Lower Body Dressing (QC): 6 On/Off Footwear (QC): 6 Toileting (FIM): 6 (Using grabbars and FWW, pt is able to complete toileting by self.) Toileting Hygiene (QC): 6 Transfers (B, C, W/C) (FIM): 6 Toilet/Commode Transfer (FIM): 6 (Using grabbars and FWW pt is able to complete by self.) Toilet Transfer (QC): 6 Shower Transfer(FIM): 6 (Using FWW, grabbar and shower bench pt able to transfer by self.) Other Treatment Pt ambulated to therapy gym using FWW. Completed UE exercises to increase strength and activity tolerance for daily functional tasks. Arm bike 15 min at 20 islsa resistance completed. 3 Wrist exercises with 2# wt, 3 sets 10 reps. 4 [place] deb exercises with 2# wt attached, 3 sets 10 reps. Pt ambulated back to room. EOB after therapy with call light/phone in reach. All needs met in room. OT Short Term Goals Short Term Goals Time Frame: Sep 01, 2018 Grooming(FIM): 6 Toileting(FIM): 6 Transfers (B,C,W/C) (FIM): 5 Toilet/Commode Transfer(FIM): 6 Additional Short Term Goals: 1-Demonstrate ADL Tasks, 2-Verbalize Understanding , 3-ImproveStrength/Bianka 1=Demonstrate adherence to instructed precautions during ADL tasks. 2=Patient will verbalize/demonstrate understanding of assistive devices/ modifications for ADL. 3=Patient will improve strength/tolerance for activity to enable patient to perform ADL's. OT Station Worker Goals Station Worker Goals Time Frame: Sep 08, 2018 Eating (FIM): 6 (met) Eating (QC): 6 (met) Groomin (met) Oral Hygiene (QC): 6 (met) Bathing(FIM): 6 (met) Shower/Bathe Self (QC): 6 (met) Upper Body Dressing(FIM): 6 (met) Upper Body Dressing (QC): 6 (met) Lower Body Dressing(FIM): 6 (met) Lower Body Dressing (QC): 6 (met) On/Off Footwear (QC): 6 (met) Toileting(FIM): 6 (met) Toileting Hygiene (QC): 6 (met) Toilet/Commode Transfer(FIM): 6 (met) Toilet/Commode Transfer (QC): 6 (met) Shower Transfer(FIM): 6 (met) Additional Goals: 1-Demonstrate ADL Tasks, 2-Verbalize Understanding, 3- ImproveStrength/Bianka 1=Demonstrate adherence to instructed precautions during ADL tasks. 2=Patient will verbalize/demonstrate understanding of assistive devices/ modifications for ADL. 3=Patient will improve strength/tolerance for activity to enable patient to perform ADL's. OT Education/Plan Problem List/Assessment Pt would benefit from skilled OT to increase her independence in basic self care to allow her to safely return to her home to live independently with family support Discharge Recommendations Plan/Recommendations: Continue POC Treatment Plan/Plan of Care Patient would benefit from OT for education, treatment and training to promote independence in ADL's, mobility, safety and/or upper extremity function for ADL' s. Plan of Care: ADL Retraining, Functional Mobility, Group Exercise/Act as Ind ( education, exercise, functional mobility, functional activities, socialization) , UE Funct Exercise/Act, UE Neuromus Re-Ed/Coord, OTHER (energy conservation education and practice) Treatment Duration: Sep 08, 2018 Frequency: At least 5 of 7 days/Wk (IRF) Estimated Hrs Per Day: 1.5 hours per day Agreement: Yes Rehab Potential: Good Time/GCodes Start Time: 07:00 Stop Time: 08:30 Total Time Billed (hr/min): 90 Billed Treatment Time 1 visit-ADL 3 (40 min) EX 3 (50 min) GAMALIEL PARDO Aug 29, 2018 07:09
[2018-08-29] MEDS: PARoxetine 20 MG (PAXIL) TAB PO SCH (08:19)
[2018-08-29] MEDS: ASPIRIN E.C. 81 MG (ECOTRIN) TAB PO SCH (08:19)
[2018-08-29] MEDS: MELOXICAM 7.5 MG (MOBIC) TABLET PO SCH (08:19)
--- NOTE | 2018-08-29 11:56 | Physical Therapy Daily Note ---
PT Daily Note-Current Subjective Pt sitting up in bed upon arrival. Pt agrees to PT. Pt is excited to discharge tomorrow. Pain Location: No Pain Reported Mental Status Patient Orientation: Person, Place, Time, Situation Transfers Functional [place] Measure 0=Not Assessed/NA 4=Minimal Assistance 1=Total Assistance 5=Supervision or Setup 2=Maximal Assistance 6=Modified [place] 3=Moderate Assistance 7=Complete IndependenceIRFPAI Quality Coding Scale 6 Independent with activity with or without an assistive device 5 Patient requires set up or clean up by helper. Patient completes activity by themselves 4 Supervision or touching assist (CGA). [place] provide cues , steadying assist 3 The helper provides less than half the effort to complete the activity 2 The helper provides more than half the effort to complete the activity 1 Dependent. The helper does all the effort to complete an activity 7 Patient refused to complete or attempt activity 9 The patient did not perform the activity before the current illness or injury 88 Not attempted due to Medical conditions or safety concerns Transfers (B, C, W/C) (FIM): 6 Scootin Rollin Roll Left to Right (QC): 6 Supine to/from Sit: 6 Sit to/from Stand: 6 Sit to Lying (QC): 6 Sit to Stand (QC): 6 Chair/Gyk-yd-Ccmmy Xfer(QC): 6 Bed to/from Chair: 6 Car Transfer (QC): 6 Weight Bearing Right Lower Extremity: Right Weight Bearing/Tolerated Gait Training Does the Patient Walk?: Yes Gait (FIM): 6 Distance (FIM): 3=150 ft Distance: 1000+' Walk 10 feet (QC): 6 Walk 50 ft with 2 Turns(QC): 6 Walk 150 ft (QC): 6 Walking 10ft/uneven surface-QC: 6 Gait Level of Assist: 6 Gait Persons Needed: 1 Gait Assistive Device: FWW Wheelchair Training Does the Pt Use a Wheelchair?: No Stair Training Stair Training: Handrails/: 2 handrails Stairs (FIM): 6 #of Steps: 12 1 Step (curb) (QC): 6 4 Steps (QC): 6 12 Steps (QC): 6 Stairs: Pattern: Step to Level of Assist: 6 Pt ambulates 12 steps although has ramp to get into house. Balance Picking up an Object (QC): 6 Exercises Seated Therapy Exercises: Ankle pumps, Long arc quads, Hip flexion, Kicking activity Seated Reps: 20 Treatments Pt transfers and ambulates using [place] [facility] [place]. Pt completes car transfer, bed mobility, 12 steps, walking across varying surface, & picking up object from floor all at Mod I. Pt walks extended distances without fatigue or discomfort. Pt returns to room at end of tx with all needs met. Assessment Current Status: Good Progress Pt has gained strength & independence/safety with transfers and mobility. PT Short Term Goals Short Term Goals Time Frame: Sep 01, 2018 Transfers (B,C,W/C) (FIM): 5 Gait (FIM): 5 Gait Distance Comment: 200' Gait Level of Assist: 5 Gait Assistive Device: FWW PT Parole Or Probation Officer Goals Parole Or Probation Officer Goals PT Parole Or Probation Officer Goals Time Frame: Sep 08, 2018 Transfers (B,C,W/C) (FIM): 6 Sit to Lying (QC): 6 Lying-Sitting on Side/Bed(QC): 6 Sit to Stand (QC): 6 Rollin Roll Left to Right (QC): 6 Chair/Zzb-pe-Mcwxt Xfer(QC): 6 Car Transfer (QC): 6 Gait (FIM): 6 Distance: 250' Walk 10 feet (QC): 6 Walk 10ft-Uneven Surface(QC): 6 Walk 50ft with 2 Turns (QC): 6 Walk 150 ft (QC): 6 Gait Level of Assist: 6 Gait Assistive Device: FWW Stairs (FIM): 2 # of Steps: 4 1 Step (curb) (QC): 4 4 Steps (QC): 4 Stairs Level Of Assist: 5 PT Plan Problem List Problem List: Activity Tolerance Treatment/Plan Treatment Plan: Continue Plan of Care Treatment Plan: Bed Mobility, Education, Functional Activity Bianka, Functional Strength, Group Therapy, Gait, Safety, Therapeutic Exercise, Transfers Treatment Duration: Sep 08, 2018 Frequency: At least 5 of 7 days/Wk (IRF) Estimated Hrs Per Day: 1.5 hours per day Patient and/or Family Agrees t: Yes Safety Risks/Education Patient Education: Gait Training, Transfer Techniques, Correct Positioning, Safety Issues Teaching Recipient: Patient Teaching Methods: Discussion Response to Teaching: Verbalize Understanding Time/GCodes Time In: 1000 Time Out: 1100 Total Billed Treatment Time: 60 Total Billed Treatment 1, GT x2 (30m) & FA x2 (30m) G Codes Necessary: No TREIBER,MC WELDING SUPERVISOR Aug 29, 2018 11:56
--- NOTE | 2018-08-29 13:14 | PM & R (SOAP) Progress Note ---
Subjective This was a face to face visit with the patient. Time Seen by Provider: 07:30 Subjective/Events-last exam Patient was seen in her room this AM patient Modified Independent for transfers Has progressed well Review of Systems Musculoskeletal: leg pain Objective Physician Exam Last Set of Vital Signs Vital Signs Date Time Temp Pulse Resp B/P (MAP) Pulse Ox O2 Delivery O2 Flow Rate FiO2 08/29/18 09:00 Room Air 08/29/18 06:00 96.9 67 18 144/74 (97) 87 Capillary Refill : I&O Intake and Output 08/29/18 00:00 Intake Total 1320 ml Balance 1320 ml Intake Oral 1320 ml # Voids 8 General: Alert, Oriented X3, Cooperative, No Acute Distress HEENT: Atraumatic, PERRLA Neck: Supple, No JVD Lungs: Clear to Auscultation Heart: Regular Rate Abdomen: Normal Bowel Sounds, Soft, No Tenderness Extremities: Other (TRACE EDEMA RT KNEE) Neuro: Other (gOOD STRENGTH bueS ANDLLE RT with limited active flex /ext rt knee CPM ordered) Assessment/Plan Assessment and Plan 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
[2018-08-29] MEDS ORDERED: MELO7.5T46 PO (15:15)
[2018-08-29] MEDS ORDERED: PANT40TA3 PO (15:15)
[2018-08-29] MEDS ORDERED: POLY17PO31 PO (15:15)
[2018-08-29] MEDS ORDERED: ACHD5005 PO (15:15)
--- NOTE | 2018-08-29 16:00 | Physical Therapy Daily Note ---
PT Daily Note-Current Subjective Pt sitting up at EOB upon arrival. Pt agrees to PT. Pain Location: No Pain Reported Mental Status Patient Orientation: Person, Place, Time, Situation Transfers Functional King Measure 0=Not Assessed/NA 4=Minimal Assistance 1=Total Assistance 5=Supervision or Setup 2=Maximal Assistance 6=Modified [place] 3=Moderate Assistance 7=Complete IndependenceIRFPAI Quality Coding Scale 6 Independent with activity with or without an assistive device 5 Patient requires set up or clean up by helper. Patient completes activity by themselves 4 Supervision or touching assist (CGA). [place] provide cues , steadying assist 3 The helper provides less than half the effort to complete the activity 2 The helper provides more than half the effort to complete the activity 1 Dependent. The helper does all the effort to complete an activity 7 Patient refused to complete or attempt activity 9 The patient did not perform the activity before the current illness or injury 88 Not attempted due to Medical conditions or safety concerns Scootin Sit to/from Stand: 6 Sit to Stand (QC): 6 Weight Bearing Right Lower Extremity: Right Weight Bearing/Tolerated Gait Training Does the Patient Walk?: Yes Distance (FIM): 3=150 ft Distance: 200' Walk 10 feet (QC): 6 Walk 50 ft with 2 Turns(QC): 6 Walk 150 ft (QC): 6 Gait Level of Assist: 6 Gait Persons Needed: 1 Gait Assistive Device: FWW Wheelchair Training Does the Pt Use a Wheelchair?: No Exercises Supine Ex: Ankle pumps, Quad Set, Glut sets, Heel Slides, Short Arc Quads, Straight leg raise, Hip abd/add Supine Reps: 15 Treatments Pt transfers from EOB to standing using [place] [facility]. Pt ambulates in hallway using FWW. Pt completes Supine Ex on mat in Therapy Gym before ambulating back to room to rest at end of tx. Pt has all needs met. Assessment Current Status: Good Progress Pt feels ready to discharge tomorrow afternoon. PT Short Term Goals Short Term Goals Time Frame: Sep 01, 2018 Transfers (B,C,W/C) (FIM): 5 Gait (FIM): 5 Gait Distance Comment: 200' Gait Level of Assist: 5 Gait Assistive Device: FWW PT Agricultural Real Estate Agent Goals Half-Way Goals PT Agricultural Real Estate Agent Goals Time Frame: Sep 08, 2018 Transfers (B,C,W/C) (FIM): 6 Sit to Lying (QC): 6 Lying-Sitting on Side/Bed(QC): 6 Sit to Stand (QC): 6 Rollin Roll Left to Right (QC): 6 Chair/Eel-ct-Xmrsu Xfer(QC): 6 Car Transfer (QC): 6 Gait (FIM): 6 Distance: 250' Walk 10 feet (QC): 6 Walk 10ft-Uneven Surface(QC): 6 Walk 50ft with 2 Turns (QC): 6 Walk 150 ft (QC): 6 Gait Level of Assist: 6 Gait Assistive Device: FWW Stairs (FIM): 2 # of Steps: 4 1 Step (curb) (QC): 4 4 Steps (QC): 4 Stairs Level Of Assist: 5 PT Plan Problem List Problem List: Activity Tolerance Treatment/Plan Treatment Plan: Continue Plan of Care Treatment Plan: Bed Mobility, Education, Functional Activity Bianka, Functional Strength, Group Therapy, Gait, Safety, Therapeutic Exercise, Transfers Treatment Duration: Sep 08, 2018 Frequency: At least 5 of 7 days/Wk (IRF) Estimated Hrs Per Day: 1.5 hours per day Patient and/or Family Agrees t: Yes Safety Risks/Education Patient Education: Gait Training, Transfer Techniques, Correct Positioning, Safety Issues Teaching Recipient: Patient Teaching Methods: Discussion Response to Teaching: Verbalize Understanding Time/GCodes Time In: 1400 Time Out: 1430 Total Billed Treatment Time: 30 Total Billed Treatment 1, GT (15m) & EX (15m) G Codes Necessary: MC Sharma PTA Aug 29, 2018 16:00
[2018-08-29 16:21] VITALS: BP 146/71
[2018-08-29] MEDS: POLYETHYLENE GLYCOL 17 GM (MIRALAX) PACK PO SCH (20:22)
[2018-08-30 05:10] VITALS: BP 128/65
[2018-08-30] MEDS: VITAMIN D3 1,000 UNITS (CHOLECALCIFEROL) TABLET PO SCH (06:21)
[2018-08-30] MEDS: CALCIUM CARB + VIT D 600 MG (CALCARB + D) TAB PO SCH (06:21)
[2018-08-30] MEDS: MULTIVIT W/MINERALS TAB (THERAGRAN M) PO SCH (06:21)
[2018-08-30] MEDS: PANTOPRAZOLE 40 MG (PROTONIX) TAB PO SCH (06:21)
[2018-08-30] MEDS: HYDROcodone/APAP 5 MG/325 MG (LORTAB) TAB PO PRN (06:21)
[2018-08-30] MEDS: MELOXICAM 7.5 MG (MOBIC) TABLET PO SCH (08:24)
[2018-08-30] MEDS: PARoxetine 20 MG (PAXIL) TAB PO SCH (08:24)
--- NOTE | 2018-08-30 08:24 | PM & R (SOAP) Progress Note ---
Subjective This was a face to face visit with the patient. Date Seen by Provider: Aug 30, 2018 Time Seen by Provider: 07:35 Subjective/Events-last exam Patient was seen in her room this AM All set for discharge Date Identified: Aug 30, 2018 Time Identified: 07:30 Medication Intervention: Discharge meds reviewed Objective Physician Exam Last Set of Vital Signs Vital Signs Date Time Temp Pulse Resp B/P (MAP) Pulse Ox O2 Delivery O2 Flow Rate FiO2 08/30/18 05:10 97.4 63 16 128/65 (86) 96 Room Air Capillary Refill : I&O Intake and Output 08/30/18 00:00 Intake Total 1000 ml Balance 1000 ml Intake Oral 1000 ml # Voids 5 # Bowel Movements 2 General: Alert, Oriented X3, Cooperative, No Acute Distress HEENT: Atraumatic, PERRLA Neck: Supple, No JVD Lungs: Clear to Auscultation Heart: Regular Rate Abdomen: Normal Bowel Sounds, Soft, No Tenderness Extremities: Other (TRACE EDEMA RT KNEE) Neuro: Other (gOOD STRENGTH bueS ANDLLE RT with limited active flex /ext rt knee CPM ordered) Assessment/Plan Assessment and Plan Home today with Family and HHC F/U with ortho and pcp See orders Co-Morbidities that are continuing to impact the rehab process: (include details ) LUI HODGE MD Aug 30, 2018 08:24
[2018-08-30] MEDS: ASPIRIN E.C. 81 MG (ECOTRIN) TAB PO SCH (08:25)
--- NOTE | 2018-08-30 08:34 | Therapy Team Discharge Summary ---
Therapy Discharge Summary Discharge Recommendations Date of Discharge Therapy D/C Recommendations: Home w/ Family Support Physical Therapy Patient came to rehab following a right TKA. Upon evaluation patient performed bed mobility with SBA, sit to stand and transfers with CGA, car transfer CGA, ambulated 150' with a rolling walker with CGA (including 50' with at least 2 turns of 90 degrees and 10' over an uneven surface), and can go up and down 1 step using a rolling walker with CGA. Patient has been performing bed mobility and transfer training, balance and endurance training, functional strengthening , stair training, gait training, and education. Patient has made good progress and has met all of her nursing home goals. Now, patient is mod I with bed mobility and transfers, car transfer mod I, ambulates 1000' with a rolling walker with mod I (including 50' with at least 2 turns of 90 degrees and 10' over an uneven surface), and can go up and down 12 steps using 2 handrails with mod I. Patient is discharging from this facility today and will be discharged from PT at this time. Occupational Therapy Decreased Activ Tolerance, Decreased UE Strength, Dependent Transfers, Impaired I ADL's, Impaired Self-Care Skills PT Mcc Goals Director Of Corporate Sales Goals PT Director Of Corporate Sales Goals Time Frame: Sep 08, 2018 Transfers (B,C,W/C) (FIM): 6 Roll Left to Right (QC): 6 Sit to Lying (QC): 6 Lying-Sitting on Side/Bed(QC): 6 Sit to Stand (QC): 6 Chair/Bqc-pn-Unowo Xfer(QC): 6 Car Transfer (QC): 6 Gait (FIM): 6 Distance: 250' Walk 10 feet (QC): 6 Walk 10ft-Uneven Surface(QC): 6 Walk 50ft with 2 Turns (QC): 6 Walk 150 ft (QC): 6 Gait Level of Assist: 6 Gait Assistive Device: FWW Stairs (FIM): 2 # of Steps: 4 1 Step (curb) (QC): 4 4 Steps (QC): 4 Stairs Level Of Assist: 5 OT Mcc Goals Mcc Goals Time Frame: Sep 08, 2018 Eating (FIM): 6 (met) Eating (QC): 6 (met) Oral Hygiene (QC): 6 (met) Grooming(FIM): 6 (met) Bathing(FIM): 6 (met) Shower/Bathe Self (QC): 6 (met) Upper Body Dressing(FIM): 6 (met) Upper Body Dressing (QC): 6 (met) Lower Body Dressing(FIM): 6 (met) Lower Body Dressing (QC): 6 (met) On/Off Footwear (QC): 6 (met) Toileting(FIM): 6 (met) Toileting Hygiene (QC): 6 (met) Toilet/Commode Transfer(FIM): 6 (met) Toilet/Commode Transfer (QC): 6 (met) Shower Transfer(FIM): 6 (met) Additional Goals: 1-Demonstrate ADL Tasks, 2-Verbalize Understanding, 3- ImproveStrength/Bianka 1=Demonstrate adherence to instructed precautions during ADL tasks. 2=Patient will verbalize/demonstrate understanding of assistive devices/ modifications for ADL. 3=Patient will improve strength/tolerance for activity to enable patient to perform ADL's. Speech Director Of Corporate Sales Goals Mcc Goals no goals established as skilled ST not indicated. BIPIN HUGHES PT Aug 30, 2018 08:34
--- NOTE | 2018-08-30 11:03 | D/C HH Face to Face Order ---
D/C Face to Face Orders Instructions for Patient Integrity [phone] Patient Instructions/FollowUp: Dr. Mccauley Physician to follow Patient: Dr. Mccauley ([facility] Discharge Diet for Home: Regular Diet Patient Data-Allergies,Ht & Wt Patient Allergies: Coded Allergies: No Known Drug Allergies (Unverified , 04/06/18) Height (Feet): 5 Height (Inches): 6.00 Weight (Pounds): 121 Weight (Ounces): 1.0 Home Health Need/Face to Face Date of Face to Face: Aug 30, 2018 Clinical Findings: Generalized weakness and fatigue, Muscle weakness, Unsteady gait I have seen Pt [id number]: Yes Discharged To: Home Diagnosis/Conditions: L TKR Patient is Homebound due to: Muscle weakness Homebound Status Due to the above stated illness, injury or surgical procedure (medical condition or diagnosis) and associated clinical findings, the patient is homebound because of his/her inability to leave home except with aid of a supportive device and/or person AND leaving the home requires a considerable and taxing effort or is medically contraindicated. Pt req the following assistanc: Walker Home Health Nursing Orders Home Health Services Order: Nursing Services, Physical Therapy-Evaluate & Treat RN for dressing changes Therapy Orders Therapy Orders: Physical Therapy Therapy Specific Orders: Eval assistive deivces, Teach enviro modifications/ safety, Gait training, Increase strength/endurance Certify Stmt I certify that this patient is under my care and that I, a nurse practitioner or a physician; a assistant hairstylist working with me, had a face to face encounter that - meets the physician face to face encounter requirements with this patient as dated. I personally scribed for LUI HODGE MD ([facility]) on 08/30/18 at 11:02. Electronically submitted by Francie Bray ([id number]). LUI HODGE MD Aug 30, 2018 11:02
--- NOTE | 2018-08-30 13:29 | Therapy Team Discharge Summary ---
Therapy Discharge Summary Discharge Recommendations Date of Discharge Therapy D/C Recommendations: Home w/ Family Support, Occupational Therapy Home Care Occupational Therapy Pt was seen for skilled OT to increase her independence in basic self car to allow her to safely return home after elective total knee replacement. On admission she needed setup or SBA with grooming, bathing, dressing, toileting and was mod I with eating. By discharge she was mod I with all ADLs and independent with grooming. She used shower chair, grab bars, FWW, hand held shower. See tx plan for goals met. Home with home health. No additional bathroom equipment needed. DC OT. Decreased Activ Tolerance, Decreased UE Strength, Dependent Transfers, Impaired I ADL's, Impaired Self-Care Skills PT Snf Goals Snf Goals PT Snf Goals Time Frame: Sep 08, 2018 Transfers (B,C,W/C) (FIM): 6 Roll Left to Right (QC): 6 Sit to Lying (QC): 6 Lying-Sitting on Side/Bed(QC): 6 Sit to Stand (QC): 6 Chair/Uyy-mh-Bxgqy Xfer(QC): 6 Car Transfer (QC): 6 Gait (FIM): 6 Distance: 250' Walk 10 feet (QC): 6 Walk 10ft-Uneven Surface(QC): 6 Walk 50ft with 2 Turns (QC): 6 Walk 150 ft (QC): 6 Gait Level of Assist: 6 Gait Assistive Device: FWW Stairs (FIM): 2 # of Steps: 4 1 Step (curb) (QC): 4 4 Steps (QC): 4 Stairs Level Of Assist: 5 OT Snf Goals Horizontal Drill Operator Goals Time Frame: Sep 08, 2018 Eating (FIM): 6 (met) Eating (QC): 6 (met) Oral Hygiene (QC): 6 (met) Grooming(FIM): 6 (met) Bathing(FIM): 6 (met) Shower/Bathe Self (QC): 6 (met) Upper Body Dressing(FIM): 6 (met) Upper Body Dressing (QC): 6 (met) Lower Body Dressing(FIM): 6 (met) Lower Body Dressing (QC): 6 (met) On/Off Footwear (QC): 6 (met) Toileting(FIM): 6 (met) Toileting Hygiene (QC): 6 (met) Toilet/Commode Transfer(FIM): 6 (met) Toilet/Commode Transfer (QC): 6 (met) Shower Transfer(FIM): 6 (met) Additional Goals: 1-Demonstrate ADL Tasks, 2-Verbalize Understanding, 3- ImproveStrength/Bianka 1=Demonstrate adherence to instructed precautions during ADL tasks. 2=Patient will verbalize/demonstrate understanding of assistive devices/ modifications for ADL. 3=Patient will improve strength/tolerance for activity to enable patient to perform ADL's. Speech Horizontal Drill Operator Goals Horizontal Drill Operator Goals no goals established as skilled ST not indicated. SANDY JAMES OT Aug 30, 2018 13:29
[2018-08-30 14:53] VITALS: BP 128/65
== END 2018-08-30 13:10 | disposition home health service (06) | DRG 561 ==
PROVIDERS: ADMIT Physical Medicine & Rehabilitation; ATTEND Physical Medicine & Rehabilitation
DX: Z47.1 Aftercare following joint replacement surgery (principal); Z96.651 Presence of right artificial knee joint; K21.9 Gastro-esophageal reflux disease without esophagitis; K44.9 Diaphragmatic hernia without obstruction or gangrene; F32.9 Major depressive disorder, single episode, unspecified; C88.0 Waldenstrom macroglobulinemia; E78.5 Hyperlipidemia, unspecified; M81.0 Age-related osteoporosis without current pathological fracture; Z23 Encounter for immunization
CPT/HCPCS: 90686